=== PATIENT | female | born 1960 | race Caucasian/White ===

== ENCOUNTER 2018-11-19 11:35 | Outpatient (RCR) | payer MEDICARE, BC | END 2018-12-13 | LOC: M OT 11:35 | PROVIDERS: ATTEND Nurse Practitioner Family | DX: M25.529 Pain in unspecified elbow (principal) ==

== ENCOUNTER → 2018-12-12 | Outpatient (CLI) | payer MEDICARE, BC ==
[2018-12-12 08:47] LABS: HEMOGLOBIN A1c 5.9 %
[2018-12-12 08:51] LABS: ALBUMIN 3.6 GM/DL (3.2-5.2); ALT/SGPT 34 U/L (12-78); BILIRUBIN,TOTAL 0.4 MG/DL (0.2-1.0); BLOOD UREA NITROGEN 17 MG/DL (7-18); CALCIUM LEVEL 9.3 MG/DL (8.8-10.2); CARBON DIOXIDE LEVEL 24 MEQ/L (21-32); CHLORIDE LEVEL 109 MEQ/L (98-107); CHOLESTEROL LEVEL 212 MG/DL (<200); CHOLESTEROL RISK RATIO 2.789 (<5); CREATININE FOR GFR 0.79 MG/DL (0.55-1.30); FREE T4 0.77 NG/DL (0.76-1.46); GLOMERULAR FILTRATION RATE > 60.0 (>45); GLUCOSE, FASTING 84 MG/DL (70-100); HDL CHOLESTEROL 76 MG/DL (>40); LDL CHOLESTEROL 122 MG/DL (<100); NON-HDL-C 136 MG/DL; POTASSIUM SERUM 4.1 MEQ/L (3.5-5.1); SODIUM LEVEL 142 MEQ/L (136-145); TOTAL PROTEIN 6.8 GM/DL (6.4-8.2); TRIGLYCERIDES LEVEL 71 MG/DL (<150)
== END ==
LOC: M LAB 07:30
PROVIDERS: ATTEND Nurse Practitioner Family
DX: K21.9 Gastro-esophageal reflux disease without esophagitis (principal); E03.9 Hypothyroidism, unspecified; Z13.1 Encounter for screening for diabetes mellitus; Z13.220 Encounter for screening for lipoid disorders; R50.82 Postprocedural fever

== ENCOUNTER → 2018-12-12 | Outpatient (CLI) | payer MEDICARE, BC ==
[2018-12-12 08:19] LABS: BASO # 0.1 10^3/uL (0.0-0.2); BASO % 0.7 % (0.0-1.0); EOS # 0.1 10^3/uL (0.0-0.50); EOS % 1.6 % (0.0-3.0); HEMATOCRIT 43.7 % (36.0-47.0); HEMOGLOBIN 14.9 g/dl (12.0-15.5); LYMPH # 2.2 10^3/uL (1.5-4.5); LYMPH % 27.1 % (24.0-44.0); MEAN CORPUSCULAR HEMOGLOBIN 30.2 pg (27.0-33.0); MEAN CORPUSCULAR HGB CONC 34.1 g/dl (32.0-36.5); MEAN CORPUSCULAR VOLUME 88.5 fl (80.0-96.0); MONO # 0.7 10^3/uL (0.0-0.8); MONO % 8.3 % (0.0-5.0); NEUTROPHILS % 61.9 % (36.0-66.0); PLATELET COUNT, AUTOMATED 243 10^3/uL (150-450); RED BLOOD COUNT 4.94 10^6/uL (4.00-5.40); WHITE BLOOD COUNT 8.2 10^3/uL (4.0-10.0)
[2018-12-12 08:49] LABS: ERYTHROCYTE SEDIMENTATION RATE 27 mm/hr (0-30)
== END ==
LOC: M LAB 07:35
DX: R50.82 Postprocedural fever (principal)

== ENCOUNTER → 2018-12-26 | Outpatient (CLI) | payer MEDICARE, BC ==
--- NOTE | 2019-01-02 12:34 | REP ---
RIGHT UPPER QUADRANT SONOGRAPHY: REPEAT DICTATION. HISTORY: Epigastric pain. Gastroesophageal reflux disease. Right upper quadrant pain. FINDINGS: Scanning through the right upper quadrant of the abdomen demonstrates normal sized, thin-walled gallbladder with a 1.2 cm mobile shadowing calculus. There is some tenderness to scanning over the gallbladder. The common bile duct is normal measuring 0.5 cm in greatest diameter. The liver is hyperechoic, which may reflect fatty infiltration. Liver appears enlarged with midclavicular line craniocaudal dimension of 20 cm. No pancreatic abnormalities observed. No focal liver lesion is seen. There is no evidence of ascites or right renal abnormality. The right kidney measures 11.1 x 4.8 x 3.5 cm. IMPRESSION: Cholelithiasis. Fatty infiltration of the liver. Hepatomegaly. Electronically Signed by Emory Pugh MD 01/02/2019 02:18 P
== END ==
LOC: M RAD 07:50
PROVIDERS: ATTEND Physician Assistant Medical
DX: K76.0 Fatty (change of) liver, not elsewhere classified (principal); K80.80 Other cholelithiasis without obstruction; R16.0 Hepatomegaly, not elsewhere classified; R10.11 Right upper quadrant pain; R10.13 Epigastric pain; K21.9 Gastro-esophageal reflux disease without esophagitis

== ENCOUNTER → 2019-03-26 | Outpatient (REF) | payer MEDICARE, BC ==
[2019-03-26 19:16] LABS: BLOOD UREA NITROGEN 15 MG/DL (7-18); CREATININE FOR GFR 0.93 MG/DL (0.55-1.30); GLOMERULAR FILTRATION RATE > 60.0 (>45)
== END ==
LOC: M LABNEURO 13:53
PROVIDERS: ATTEND Orthopaedic Surgery
DX: M77.02 Medial epicondylitis, left elbow (principal)

== ENCOUNTER → 2019-04-03 | Outpatient (REF) | payer MEDICARE, BC | LOC: M SFHCPLAZ 12:05 | PROVIDERS: ATTEND Nurse Practitioner Family | DX: R73.03 Prediabetes (principal); E03.9 Hypothyroidism, unspecified; Z53.8 Procedure and treatment not carried out for other reasons ==

== ENCOUNTER → 2019-04-17 | Outpatient (CLI) | payer MEDICARE, BC ==
[2019-04-17 15:39] LABS: ALBUMIN 3.7 GM/DL (3.2-5.2); ALT/SGPT 34 U/L (12-78); BILIRUBIN,TOTAL 0.3 MG/DL (0.2-1.0); BLOOD UREA NITROGEN 15 MG/DL (7-18); CALCIUM LEVEL 9.8 MG/DL (8.8-10.2); CARBON DIOXIDE LEVEL 26 MEQ/L (21-32); CHLORIDE LEVEL 105 MEQ/L (98-107); CREATININE FOR GFR 0.89 MG/DL (0.55-1.30); FREE T3 3.5 PG/ML (2.2-4.0); FREE T4 0.73 NG/DL (0.76-1.46); GLOMERULAR FILTRATION RATE > 60.0 (>45); GLUCOSE, FASTING 128 MG/DL (70-100); POTASSIUM SERUM 4.5 MEQ/L (3.5-5.1); SODIUM LEVEL 139 MEQ/L (136-145)
[2019-04-17 16:09] LABS: HEMOGLOBIN A1c 5.9 %
== END ==
LOC: M LAB 13:58
PROVIDERS: ATTEND Nurse Practitioner Family
DX: E03.9 Hypothyroidism, unspecified (principal); R73.03 Prediabetes

== ENCOUNTER → 2019-07-15 | Outpatient (REF) | payer MEDICARE, BC ==
[2019-07-15 12:25] LABS: FREE T4 0.75 NG/DL (0.76-1.46); THYROID STIMULATING HORMONE 1.44 uIU/ML (0.358-3.740)
== END ==
LOC: M SFHCPLAZ 10:13
PROVIDERS: ATTEND Family Medicine
DX: E03.9 Hypothyroidism, unspecified (principal)
CPT/HCPCS: 36415; 84439; 84443; G0463

== ENCOUNTER → 2020-02-24 | Outpatient (REF) | payer MEDICARE, BC ==
[~2020-02-24] MED LIST: ARMO1TAB; CBD OIL; CLAR10CA3 PO; D31000TA2 PO; EUCR2OIN; FISH120016 PO; IBUP-1114 PO; METF-838; MONT10TA4; MULT-90 PO; PEPC10TA6 PO; PREG25CA2; QVAR40AE12; [UNRECOGNIZED DRUG - OTHER]
[2020-03-28 10:37] LABS: BASO # 0.1 10^3/uL (0.0-0.2); BASO % 0.7 % (0.0-1.0); EOS # 0.3 10^3/uL (0.0-0.5); EOS % 3.9 % (0.0-3.0); HEMATOCRIT 41.4 % (36.0-47.0); LYMPH # 1.8 10^3/uL (1.5-5.0); LYMPH % 26.3 % (24.0-44.0); MEAN CORPUSCULAR HEMOGLOBIN 30.1 pg (27.0-33.0); MEAN CORPUSCULAR HGB CONC 33.8 g/dl (32.0-36.5); MONO # 0.5 10^3/uL (0.0-0.8); MONO % 8.1 % (0.0-5.0); NEUTROPHILS # 4.1 10^3/uL (1.5-8.5); NEUTROPHILS % 60.7 % (36.0-66.0); PLATELET COUNT, AUTOMATED 214 10^3/uL (150-450); RED BLOOD COUNT 4.65 10^6/uL (4.00-5.40); WHITE BLOOD COUNT 6.7 10^3/uL (4.0-10.0)
[2020-04-20 01:54] LABS: ALBUMIN 3.7 GM/DL (3.2-5.2); ALT/SGPT 26 U/L (12-78); BILIRUBIN,TOTAL 0.2 MG/DL (0.2-1.0); BLOOD UREA NITROGEN 14 MG/DL (7-18); CALCIUM LEVEL 9.3 MG/DL (8.8-10.2); CARBON DIOXIDE LEVEL 26 MEQ/L (21-32); CHLORIDE LEVEL 109 MEQ/L (98-107); CREATININE FOR GFR 0.82 MG/DL (0.55-1.30); GLOMERULAR FILTRATION RATE > 60.0 (>45); GLUCOSE, FASTING 123 MG/DL (70-100); POTASSIUM SERUM 3.9 MEQ/L (3.5-5.1); SODIUM LEVEL 141 MEQ/L (136-145); TOTAL PROTEIN 7.1 GM/DL (6.4-8.2)
== END ==
LOC: M LABWUC 14:42
PROVIDERS: ATTEND Physician Assistant
DX: J45.21 Mild intermittent asthma with (acute) exacerbation (principal)

== ENCOUNTER → 2020-03-04 | Outpatient (CLI) | payer MEDICARE, BC ==
--- NOTE | 2020-03-12 07:17 | REP ---
CT OF THE CHEST WITHOUT IV CONTRAST: Delay in reporting results from hospital computer malfunction as a result of malware. HISTORY: Solitary pulmonary nodule and mild intermittent asthma with acute exacerbation. COMPARISON: There are no comparison plain film chest studies or chest CT studies in our film file. Therefore, it would be of interest to know how the diagnosis of solid pulmonary nodule was made. FINDINGS: There is a noncalcified 5 mm lung nodule in the medial basilar segment of the right lower lobe on image 59. This is a category 3 lung lesion with the probability of malignancy 1-2%. A 6 [address] up [address] is recommended for further evaluation. There is a 6 mm calcified granuloma in the superior segment of the left lower lobe on image 54. There is a calcified granuloma in the left hilus. There is a calcified granuloma in the aorticopulmonic window of the mediastinum. There are calcified granulomas in the liver and spleen. The study is insensitive for hilar lenore enlargement in the absence of IV contrast. There are no other noncalcified lung nodules. There are no infiltrates or pleural effusions. There is no mediastinal or axillary lymph node enlargement. In the absence of IV contrast, the study is insensitive for hilar lymph node enlargement. There is a calcified atheroma in the coronary arteries. The unenhanced thoracic aorta is unremarkable. Cardiac size is normal. In the upper abdomen, there is no adrenal nodule or mass. There are calcified granulomas in the liver and spleen. The gallbladder and pancreas are unremarkable. IMPRESSION: There is a noncalcified 5 mm nodule in the right lower lobe, as discussed above. This is a category 3 lung lesion with the probability of malignancy 1-2%. Six month follow up chest CT is recommended. There are calcified granulomas as described. There are no infiltrates or effusions. There are no comparison plain film or CT studies. [facility]
== END ==
LOC: M RAD 08:20
PROVIDERS: ATTEND Physician Assistant
DX: R91.1 Solitary pulmonary nodule (principal); J45.21 Mild intermittent asthma with (acute) exacerbation

== ENCOUNTER → 2020-04-10 | Outpatient (CLI) | payer MEDICARE, BC | LOC: M LABSMTC 10:30 | PROVIDERS: ATTEND Anesthesiology | DX: Z01.812 Encounter for preprocedural laboratory examination (principal); Z20.828 Contact with and (suspected) exposure to other viral communicable diseases | CPT/HCPCS: C9803; U0003 ==

== ENCOUNTER 2020-04-15 08:45 | Day surgery (SDC) | payer MEDICARE, BC ==
[~2020-04-15] VITALS: Ht 165.1 cm; Wt 105.2 kg
[~2020-04-15 08:45] MED LIST changes: +LIDOCAINE 2% 100MG/5ML SDV (FOR ANES.) As Ordered ONE; +NS 1,000 ML IV ONE; +propofoL 200 MG/20 ML VIAL As Ordered ONE
--- NOTE | 2020-04-15 09:54 | ROOR ---
Patient Name: Alexa Car Procedure Date: 04/15/2020 9:32 AM Date of : 1960 Age: 59 Room: [facility] Gender: Female Note Status: Finalized Procedure: Colonoscopy Indications: High risk colon cancer surveillance: Personal history of colonic polyps, Family history of colon cancer in multiple first-degree relatives Providers: Alcides HERNANDEZ MD Referring MD: KEYONNA THURSTON MD Requesting Provider: Medicines: Monitored Anesthesia Care Complications: No immediate complications. Procedure: Pre-Anesthesia Assessment: - The heart rate, respiratory rate, oxygen saturations, blood pressure, adequacy of pulmonary ventilation, and response to care were monitored throughout the procedure. The Colonoscope was introduced through the anus and advanced to 10 cm into the ileum. The colonoscopy was performed without difficulty. The patient tolerated the procedure well. The quality of the bowel preparation was good. Findings: The perianal and digital rectal examinations were normal. A 4 mm polyp was found in the distal ascending colon. The polyp was sessile. The polyp was removed with a cold snare. Resection and retrieval were complete. Mild sigmoid diverticulosis and small internal hemorrhoids. The exam was otherwise without abnormality on direct and retroflexion views. Impression: - One 4 mm polyp in the distal ascending colon, removed with a cold snare. Resected and retrieved. - Mild sigmoid diverticulosis and small internal hemorrhoids. - The examination was otherwise normal on direct and retroflexion views. Recommendation: - Repeat colonoscopy in 5 years for surveillance. Alcides Hernandez MD Alcides HERNANDEZ MD 04/15/2020 9:53:57 AM Electronically signed by Alcides HERNANDEZ MD Number of Addenda: 0 Note Initiated On: 04/15/2020 9:32 AM Estimated Blood Loss: Estimated blood loss: none.
[2020-04-15 10:18] VITALS: BP 160/80
== END 2020-04-15 10:20 | disposition home or self-care (01) ==
LOC: M OPP 08:45
PROVIDERS: ATTEND Internal Medicine Gastroenterology
DX: Z12.11 Encounter for screening for malignant neoplasm of colon (principal); Z86.010 Personal history of colon polyps; Z80.0 Family history of malignant neoplasm of digestive organs; K63.5 Polyp of colon; K57.30 Diverticulosis of large intestine without perforation or abscess without bleeding; E11.9 Type 2 diabetes mellitus without complications; E03.9 Hypothyroidism, unspecified; Z79.84 Long term (current) use of oral hypoglycemic drugs; Z79.899 Other long term (current) drug therapy; Z88.0 Allergy status to penicillin; Z88.1 Allergy status to other antibiotic agents; Z88.8 Allergy status to other drugs, medicaments and biological substances

== ENCOUNTER → 2020-04-23 | Outpatient (CLI) | payer MEDICARE, BC ==
[~2020-04-23] MED LIST changes: -LIDOCAINE 2% 100MG/5ML SDV (FOR ANES.) As Ordered ONE; -NS 1,000 ML IV ONE; -propofoL 200 MG/20 ML VIAL As Ordered ONE
[2020-04-23 14:10] LABS: BASO # 0.1 10^3/uL (0.0-0.2); BASO % 1.4 % (0.0-1.0); EOS # 0.4 10^3/uL (0.0-0.5); EOS % 6.6 % (0.0-3.0); HEMATOCRIT 41.9 % (36.0-47.0); LYMPH # 1.9 10^3/uL (1.5-5.0); LYMPH % 32.5 % (24.0-44.0); MEAN CORPUSCULAR HEMOGLOBIN 30.4 pg (27.0-33.0); MEAN CORPUSCULAR HGB CONC 33.4 g/dl (32.0-36.5); MEAN CORPUSCULAR VOLUME 91.1 fl (80.0-96.0); MONO # 0.6 10^3/uL (0.0-0.8); NEUTROPHILS # 2.9 10^3/uL (1.5-8.5); NEUTROPHILS % 48.8 % (36.0-66.0); PLATELET COUNT, AUTOMATED 257 10^3/uL (150-450); WHITE BLOOD COUNT 5.9 10^3/uL (4.0-10.0)
[2020-04-23 14:25] LABS: ALBUMIN 3.5 GM/DL (3.2-5.2); ALT/SGPT 30 U/L (12-78); BILIRUBIN,TOTAL 0.4 MG/DL (0.2-1.0); BLOOD UREA NITROGEN 12 MG/DL (7-18); CALCIUM LEVEL 9.4 MG/DL (8.8-10.2); CARBON DIOXIDE LEVEL 23 MEQ/L (21-32); CHLORIDE LEVEL 107 MEQ/L (98-107); CREATININE FOR GFR 0.86 MG/DL (0.55-1.30); GLOMERULAR FILTRATION RATE > 60.0 (>45); GLUCOSE, FASTING 100 MG/DL (70-100); POTASSIUM SERUM 4.4 MEQ/L (3.5-5.1); SODIUM LEVEL 139 MEQ/L (136-145); TOTAL PROTEIN 6.8 GM/DL (6.4-8.2)
== END ==
LOC: M PLALAB 10:49
PROVIDERS: ATTEND Allergy & Immunology Allergy
DX: R53.81 Other malaise (principal)

== ENCOUNTER → 2020-07-21 | Outpatient (CLI) | payer SELFPAY ==
[~2020-07-21] MED LIST changes: -MONT10TA4; +MONT5TAB2
== END ==
LOC: M LABSMTC 13:30
PROVIDERS: ATTEND Pediatrics
DX: Z20.822 Contact with and (suspected) exposure to COVID-19 (principal)

== ENCOUNTER → 2020-09-22 | Outpatient (REF) | payer MEDICARE, BC ==
[~2020-09-22] MED LIST changes: +MONT10TA10; -MONT5TAB2
== END ==
LOC: M SMT 18:55
PROVIDERS: ATTEND Nurse Practitioner Women's Health
DX: Z12.4 Encounter for screening for malignant neoplasm of cervix (principal)
CPT/HCPCS: 87624; G0101; G0123

== ENCOUNTER → 2020-09-30 | Outpatient (CLI) | payer MEDICARE, BC ==
--- NOTE | 2020-10-07 15:50 | REPMRS ---
Patient History The patient states she had a clinical breast exam in 09/2020 Patient is postmenopausal and is nulliparous. Family history of breast cancer at age 59 in paternal aunt, colorectal cancer at age 69 in father. Benign excisional biopsy of the left breast, 1999. Took hormonal contraceptives for 27 years. Digital Woman Screen Mammo: September 30, 2020 - Exam #: [id number] Bilateral CC and MLO view(s) were taken. Technologist: Abena Berger, Technologist Prior study comparison: November 14, 2017, bilateral digital mammo screening bilat, performed at [facility] FINDINGS: The breast tissue is almost entirely fat. The Volpara volumetric breast density category is: A. There has been no change in the appearance of the mammogram from the prior studies. There is no interval development of dominant mass, architectural distortion, or grouped microcalcification typical of malignancy. 3-D tomosynthesis shows no additional findings. Assessment: BI-RADS/ACR category 1 mammogram. Negative Mammogram. Recommendation Routine screening mammogram of both breasts in 1 year (for women over age 40). This patient's [facility] Lifetime Breast Cancer RIsk is estimated at 15.3 %. This mammogram was interpreted with the aid of an FDA-approved computer-aided dectection system. Electronically Signed By: Kevon Pugh MD 10/07/20 [id number]
== END ==
LOC: M WHC 11:56
PROVIDERS: ATTEND Nurse Practitioner Women's Health
DX: Z12.31 Encounter for screening mammogram for malignant neoplasm of breast (principal); Z80.0 Family history of malignant neoplasm of digestive organs; Z86.018 Personal history of other benign neoplasm; Z92.0 Personal history of contraception

== ENCOUNTER → 2020-10-15 | Outpatient (CLI) | payer SELFPAY | LOC: M LABSMTC 13:33 | PROVIDERS: ATTEND Pediatrics | DX: Z11.52 Encounter for screening for COVID-19 (principal) ==

== ENCOUNTER → 2021-03-17 | Outpatient (CLI) | payer MEDICARE, BC ==
[~2021-03-17] MED LIST changes: +METHACHOLINE KIT (J7674) INH ONE; -MONT10TA10; +MONT10TA97
== END ==
LOC: M CARPUL 10:47
PROVIDERS: ATTEND Internal Medicine Pulmonary Disease
DX: R06.00 Dyspnea, unspecified (principal)
CPT/HCPCS: 94070; 95070; J7674

== ENCOUNTER → 2021-04-18 | Outpatient (CLI) | payer MEDICARE, BC ==
[~2021-04-18] MED LIST changes: -METHACHOLINE KIT (J7674) INH ONE; +MONT10TA10; -MONT10TA97
--- NOTE | 2021-04-18 15:03 | REP ---
INDICATION: LLE R/O DVT FOR UNILATERAL EDEMA COMPARISON: None. TECHNIQUE: An scale and color Doppler evaluation using linear high frequency transducer. FINDINGS: Ultrasound examination of the left lower extremity deep venous structures from the common femoral vein through the calf/ankle to include the peroneal, and tibial veins demonstrates normal compressibility flow and wave patterns in response to respiration and augmentation. There is no evidence for deep venous thrombosis. IMPRESSION: No evidence for deep venous thrombosis. <Electronically signed by Nik Andrade > 04/18/21 1500
== END ==
LOC: M WHC 14:13
PROVIDERS: ATTEND Registered Nurse
DX: R60.0 Localized edema (principal)

== ENCOUNTER → 2021-05-09 | Outpatient (CLI) | payer MEDICARE, BC ==
[~2021-05-09] MED LIST changes: +ISOVUE-370 76% 100ML VIAL ONE
--- NOTE | 2021-05-09 14:49 | REP ---
INDICATION: PERSISTENT UNILAT LLE EDEMA. COMPARISON: None. TECHNIQUE: Standard helical technique after the intravenous administration of 100 cc Isovue 370. FINDINGS: The lung bases are clear. There is an incidental calcified granuloma left lower lobe. The liver, gallbladder, spleen, pancreas, adrenal glands, and kidneys are within normal limits. The abdominal aorta and para-aortic regions are within normal limits. The bowel loops and the mesenteries are within normal limits. There is no evidence of a mass or adenopathy. There is no free fluid or free air. Bone window technique throughout the examination shows the osseous structures to be within normal limits. There is a minimal grade 1 L4 upon L5 spondylolisthesis secondary to degenerative facet joint changes at that level. IMPRESSION: There is no evidence of acute disease. Findings as described above. <Electronically signed by Saad Deshpande > 05/09/21 [id number]
== END ==
LOC: M PLAIMG 11:01
PROVIDERS: ATTEND Registered Nurse
DX: R60.0 Localized edema (principal)
CPT/HCPCS: 74177; Q9967

== ENCOUNTER → 2021-05-25 | Outpatient (CLI) | payer MEDICARE, BC ==
[~2021-05-25] MED LIST changes: -ISOVUE-370 76% 100ML VIAL ONE
--- NOTE | 2021-05-25 15:42 | REP ---
INDICATION: ABN FINDING OF LUNG COMPARISON: 03/04/2020 also without contrast TECHNIQUE: Standard helical technique without contrast FINDINGS: The mediastinum and pulmonary andrews are stable. No mass or adenopathy has developed. There are no pleural or pericardial effusions. The imaged upper abdomen shows diffuse low density throughout the hepatic parenchyma. Scattered calcified granulomatous changes are seen in the liver and spleen status quo. There is no significant change in appearance of the imaged osseous structures. Evaluation of the lung tim shows no change in the 5 mm sized nodule in the right lower lobe. No new abnormal nodules, masses, or opacities have developed. Incidental calcified granulomas are again seen in the left hilum and left lower lobe status quo. IMPRESSION: 1. There is fatty infiltration of the liver. 2. Stable noncalcified right lower lobe nodule. According to the revised Fleischner society criteria this represents a lung rads category [address] for [address] yearly CT screening is recommended if clinically relevant. <Electronically signed by Saad Deshpande > 05/25/21 [id number]
== END ==
LOC: M PLAIMG 12:49
PROVIDERS: ATTEND Internal Medicine Pulmonary Disease
DX: R91.8 Other nonspecific abnormal finding of lung field (principal)

== ENCOUNTER → 2021-11-16 | Outpatient (CLI) | payer MEDICARE, BC ==
[~2021-11-16] MED LIST changes: -D31000TA2 PO; -MONT10TA10; +MONT10TA97; +VITA100093 PO
== END ==
LOC: M WHC 09:24
PROVIDERS: ATTEND Registered Nurse
DX: R10.2 Pelvic and perineal pain (principal)

== ENCOUNTER → 2022-02-21 | Outpatient (CLI) | payer MEDICARE, BC | LOC: M WHC 12:34 | PROVIDERS: ATTEND Nurse Practitioner Adult Health | DX: M81.0 Age-related osteoporosis without current pathological fracture (principal) ==

== ENCOUNTER → 2022-08-01 | Outpatient (CLI) | payer MEDICARE, BC ==
[~2022-08-01] MED LIST changes: +GLUCAGON INJ 1MG VIAL As Ordered ONE; +ISOVUE-370 76% 100ML VIAL As Ordered ONE; +NEULUMEX 0.1% SUSPENSION 450ML BOTTLE (FORMERLY VOLUMEN) As Ordered ONE
== END ==
LOC: M RAD 16:31
PROVIDERS: ATTEND Physician Assistant Medical
DX: R63.4 Abnormal weight loss (principal); R68.81 Early satiety; R10.31 Right lower quadrant pain
CPT/HCPCS: 74177; J1610; Q9967

== ENCOUNTER → 2022-09-15 | Outpatient (REF) | payer MEDICARE, BC ==
[~2022-09-15] MED LIST changes: -GLUCAGON INJ 1MG VIAL As Ordered ONE; -ISOVUE-370 76% 100ML VIAL As Ordered ONE; -NEULUMEX 0.1% SUSPENSION 450ML BOTTLE (FORMERLY VOLUMEN) As Ordered ONE
== END ==
LOC: M LAB REF 16:09
PROVIDERS: ATTEND Physician Assistant Medical
DX: R10.13 Epigastric pain (principal)

== ENCOUNTER → 2022-11-23 | Outpatient (CLI) | payer MEDICARE, BC | LOC: M RAD 09:10 | PROVIDERS: ATTEND Physician Assistant Medical | DX: R10.13 Epigastric pain (principal); R19.4 Change in bowel habit; K21.9 Gastro-esophageal reflux disease without esophagitis ==

== ENCOUNTER → 2022-11-27 | Outpatient (REF) | payer MEDICARE, BC ==
[2022-11-27 17:12] LABS: C REACTIVE PROTEIN QUANTITATIV 0.4 MG/DL (<1.0)
== END ==
LOC: M LAB REF 16:14
PROVIDERS: ATTEND Internal Medicine
DX: R10.13 Epigastric pain (principal)

== ENCOUNTER → 2023-08-31 | Outpatient (CLI) | payer MEDICARE, BC ==
[~2023-08-31] MED LIST changes: -PREG25CA2; +PREG25CA3
== END ==
LOC: M RAD 08:29
PROVIDERS: ATTEND Physician Assistant
DX: K80.20 Calculus of gallbladder without cholecystitis without obstruction (principal); K76.0 Fatty (change of) liver, not elsewhere classified; R10.13 Epigastric pain

== ENCOUNTER → 2023-11-29 | Outpatient (CLI) | payer MEDICARE, BC | LOC: M PLARAD 09:31 | PROVIDERS: ATTEND Podiatrist | DX: M66.372 Spontaneous rupture of flexor tendons, left ankle and foot (principal) ==

== ENCOUNTER → 2024-06-26 | Outpatient (CLI) | payer MEDICARE, BC ==
[~2024-06-26] MED LIST changes: +PROHANCE 279.3MG/ML 15ML VIAL ONE; +PROHANCE 279.3MG/ML 5ML VIAL ONE
== END ==
LOC: M PLAIMG 11:40
PROVIDERS: ATTEND Otolaryngology
DX: R42 Dizziness and giddiness (principal)
CPT/HCPCS: 70553; A9576

== ENCOUNTER → 2025-02-17 | Outpatient (REF) | payer MEDICARE, BC ==
[~2025-02-17] MED LIST changes: -PROHANCE 279.3MG/ML 15ML VIAL ONE; -PROHANCE 279.3MG/ML 5ML VIAL ONE
== END ==
LOC: M LAB REF 12:12
PROVIDERS: ATTEND Internal Medicine
DX: N39.0 Urinary tract infection, site not specified (principal)